=== PATIENT | female | born 1990 | race Two or more races ===

== ENCOUNTER 2023-07-09 15:28 | Emergency (ER) | payer MEDICAID ==
[~2023-07-09] VITALS: Ht 160 cm; Wt 114.7 kg
[2023-07-09 18:59] VITALS: BP 114/58; PULSE 90; RESP 18; TEMP 98.6; O2SAT 97
== END 2023-07-09 19:00 | disposition left against medical advice (07) ==
LOC: ER 15:28
DX: R05.9 Cough, unspecified (principal); J02.9 Acute pharyngitis, unspecified; M79.10 Myalgia, unspecified site; Z53.21 Procedure and treatment not carried out due to patient leaving prior to being seen by health care provider

== ENCOUNTER 2024-08-22 15:38 | Emergency (ER) | payer MEDICAID ==
[~2024-08-22] VITALS: Ht 160 cm; Wt 101.5 kg
[2024-08-22 16:46] VITALS: BP 100/56; PULSE 64; RESP 16; O2SAT 98
== END 2024-08-22 16:51 | disposition left against medical advice (07) ==
LOC: ER 15:38
DX: S00.12XA Contusion of left eyelid and periocular area, initial encounter (principal); H57.12 Ocular pain, left eye; Z53.21 Procedure and treatment not carried out due to patient leaving prior to being seen by health care provider; X58.XXXA Exposure to other specified factors, initial encounter; Y93.89 Activity, other specified; Y92.89 Other specified places as the place of occurrence of the external cause; Y99.8 Other external cause status

== ENCOUNTER 2024-08-22 20:14 | Emergency (ER) | payer MEDICAID ==
[~2024-08-22] VITALS: Ht 160 cm; Wt 101.6 kg
[2024-08-22] MEDS ORDERED: KETOROLAC TROMETH 30 MG/ML 1ML VIAL IV ONE (21:15)
[2024-08-22] MEDS: KETOROLAC TROMETH 30 MG/ML 1ML VIAL IM ONE (22:51)
[2024-08-22 22:55] VITALS: BP 100/69; PULSE 60; RESP 17; TEMP 98.2; O2SAT 99
== END 2024-08-22 23:03 | disposition home or self-care (01) ==
LOC: ER 20:15
DX: S00.12XA Contusion of left eyelid and periocular area, initial encounter (principal); W22.8XXA Striking against or struck by other objects, initial encounter; Y93.89 Activity, other specified; Y92.89 Other specified places as the place of occurrence of the external cause; Y99.8 Other external cause status
CPT/HCPCS: 96372; 99283; J1885

== ENCOUNTER 2024-09-26 18:31 | Emergency (ER) | payer MEDICAID ==
[~2024-09-26] VITALS: Ht 160 cm; Wt 105.5 kg
--- NOTE | 2024-09-26 18:50 | ED.PDOC ---
SOB-HPI HPI Comments 34 y.o female presents to the ED for a chief complaint of a productive cough associated with a runny nose and body aches that started 1.5 weeks ago. Patient reports daughter got sick throughout the week and shortly after contracted the same symptoms. Patient denies any chest pain, SOB, nausea, vomiting, diarrhea, fever, chills. Patient denies any medical, surgical history or allergies. 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 Family History Family History: Reviewed,noncontributory to illness Social History Smoker: Non-Smoker Alcohol: Denies ETOH Use Drugs: Denies Drug Use Lives In: Home Constitutional: denies: chills, diaphoresis, fatigue, fever, malaise, sweats, weakness, others EENTM: reports: nasal discharge; denies: blurred vision, double vision, ear bleeding, ear discharge, ear drainage, ear pain, ear ringing, eye pain, eye redness, hearing loss, mouth pain, mouth swelling, nose bleeding, nose congestion, nose pain, photophobia, tearing, throat pain, throat swelling, voice changes, others Respiratory: reports: cough; denies: hemoptysis, orthopnea, SOB at rest, shortness of breath, SOB with excertion, stridor, wheezing, others Cardiovascular: denies: chest pain, dizzy spells, diaphoresis, Dyspnea on exertion, edema, irregular heart beat, left arm pain, lightheadedness, palpitations, PND, syncope, others Gastrointestinal: denies: abdomen distended, abdominal pain, blood streaked bowels, constipated, diarrhea, dysphagia, difficulty swallowing, hematemesis, melena, nausea, poor appetite, poor fluid intake, rectal bleeding, rectal pain, vomiting, others Genitourinary: denies: abnormal vagina bleeding, burning, dyspareunia, dysuria, flank pain, frequency, hematuria, incontinence, pain, , vagina discharge, urgency, others Neurological: denies: dizziness, fainting, headache, left sided numbness, left sided weakness, numbness, paresthesia, pre-existing deficit, right sided numbness, right sided weakness, seizure, speech problems, tingling, tremors, weakness, others Musculoskeletal: reports: muscle pain; denies: back pain, gout, joint pain, joint swelling, muscle stiffness, neck pain, others Integumetry: denies: bruises, change in color, change in hair/nails, dryness, laceration, lesions, lumps, rash, wounds, others Allergic/Immunocompromised: denies: Difficulty Healing, Frequent Infections, Hives, Itching, others Hematologic/Lymphatic: denies: anemia, blood clots, easy bleeding, easy bruising, swollen glands, others Endocrine: denies: excessive hunger, excessive sweating, excessive thirst, excessive urination, flushing, intolerance to cold, intolerance to heat, unexplained weight gain, unexplained weight loss, others Psychiatric: denies: anxiety, bipolar disorder, depression, hopeless, panic disorder, schizophrenia, sleepless, suicidal, others All Other Systems: Reviewed and Negative Physical Exam General Appearance: No Apparent Distress, Normal HEENT: Other (post nasal drip ) Neck: Full Range of Motion, Non-Tender, Normal, Normal Inspection Respiratory: Chest Non-Tender, Lungs Clear, No Accessory Muscle Use, No Respiratory Distress, Normal Breath Sounds Cardiovascular: No Edema, No JVD, No Murmur, No Gallop, Normal Peripheral Pulses, Regular Rate/Rhythm Breast Exam: Deferred Gastrointestinal: No Organomegaly, Non Tender, No Pulsatile Mass, Normal Bowel Sounds, Soft Genitalia: Deferred Pelvic: Deferred Rectal: Deferred Extremities: No calf tenderness, Normal capillary refill, Normal inspection, Normal range of motion, Non-tender, No pedal edema Musculoskeletal : Apperance: Normal Neurologic: Alert, bureau chief II-XII nml as Tested, No Motor Deficits, Normal Affect, Normal Mood, No Sensory Deficits Cerebellar Function: Normal Reflexes: Normal Skin: Dry, Normal Color, Warm Lymphatic: No Adenopathy Was a procedure done? Was a procedure done?: No Differential Dx Differential Diagnosis: Bronchitis, Pneumonia, Sinusitis, Allergic Rhinitis, Otitis Media, Pharyngitis, URI X-Ray, Labs, Meds, VS Vital Signs Date Time Temp Pulse Resp B/P (MAP) Pulse Ox O2 Delivery O2 Flow Rate FiO2 09/26/24 18:38 98.1 82 18 118/58 (78) 97 09/26/24 18:38 18 97 Room Air* 0 21 Time of 1ST Reevaluation: 18:47 Reevaluation 1ST: Unchanged Patient Education/Counseling: Diagnosis, Treatment, Prognosis Family Education/Counseling: No Family Present Additional Information Discuss tx/ results: Patient and medical personnel Departure 1 Departure Time of Disposition: 18:51 Impression: Primary Impression: Viral URI with cough Disposition: 01 HOME / SELF CARE / HOMELESS Condition: Good e-Prescriptions Benzonatate (Benzonatate) 200 Mg Cap 1 CAP PO TID PRN for 5 Days, #30 CAP Prov: JB ENNIS MD 09/26/24 Loratadine & Pseudoephedrine (Claritin-D 24 Hour 10-240 mg) 1 Tab Tab 1 TAB PO q24 for 7 Days, #7 TAB 0 Refills Prov: JB ENNIS MD 09/26/24 Discharged With: Self Critical Care Note Critical Care Time?: No Stability Stability form required: No I personally scribed for JB ENNIS MD ([email or web address]) on 09/26/24 at 18:50. Electronically submitted by Cheryl Thurman ([facility]). JB ENNIS MD Sep 26, 2024 18:50
[2024-09-26] MEDS ORDERED: LORA-1130 PO (18:53)
[2024-09-26] MEDS ORDERED: BENZ200C64 PO (18:53)
[2024-09-26 19:14] VITALS: BP 90/67; PULSE 66; RESP 17; TEMP 98.7; O2SAT 97
== END 2024-09-26 19:17 | disposition home or self-care (01) ==
LOC: ER 18:31
DX: J06.9 Acute upper respiratory infection, unspecified (principal); B97.89 Other viral agents as the cause of diseases classified elsewhere

== ENCOUNTER 2025-07-23 08:22 | Emergency (ER) | payer MEDICAID ==
[~2025-07-23] VITALS: Ht 160 cm; Wt 111.2 kg
[~2025-07-23 08:22] MED LIST: BENZ200C64 PO; LORA-1130 PO
--- NOTE | 2025-07-23 08:38 | ED.PDOC ---
History of Present Illness HPI Comments A 35 YEAR OLD FEMALE PRESENTS TO THE ED WITH COMPLAINT OF LEFT BREAST PAIN. PATIENT STATES SHE HAS BEEN EXPERIENCING LEFT BREAST PAIN WITH A SMALL LUMP FOR THE PAST 3 DAYS WITH WORSENING PAIN TODAY. PATIENT REPORTS SHE HAS ALSO BEEN EXPERIENCING EPIGASTRIC PAIN THAT IS WORSE WHEN EATING OFF AND ON FOR THE PAST 1 MONTH. PATIENT DENIES DYSURIA, HEMATURIA, FLANK PAIN, FEVER, CHILLS, SHORTNESS OF BREATH, CHEST PAIN, NAUSEA, VOMITING, HEADACHE, OR OTHER COMPLAINTS. NO OTHER SYMPTOMS OR MODIFYING FACTORS AT THIS TIME. PATIENT IS ALERT, ORIENTED X 4, AND HAS STEADY GAIT. Chief Complaint: Breast pain Time Seen by MD: 08:26 Primary Care Provider: TONY Reviewed Notes: Nurses Notes, Medications, Allergies Allergies: Coded Allergies: No Known Drug Allergy (Verified Allergy, Unknown, 07/09/23) Home Meds Active Scripts Benzonatate (Benzonatate) 200 Mg Cap, 1 CAP PO TID PRN for 5 Days, #30 CAP Prov:JB ENNIS MD 09/26/24 Loratadine & Pseudoephedrine (Claritin-D 24 Hour 10-240 mg) 1 Tab Tab, 1 TAB PO q24 for 7 Days, #7 TAB 0 Refills Prov:JB ENNIS MD 09/26/24 Information Source: Patient Mode of Arrival: Ambulatory Severity: Moderate Timing: Days, Weeks Duration: Since onset, Days Prehospital treatment: None Medication Refill: For: Other (LEFT BREAST PAIN AND EPIGASTRIC PAIN) Past Medical History PAST MEDICAL HISTORY: Denies Surgical History: Denies all surgeries 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 Family History Family History: Reviewed,noncontributory to illness Social History Smoker: Non-Smoker Alcohol: Denies ETOH Use Drugs: Denies Drug Use Lives In: Home Constitutional: denies: chills, diaphoresis, fatigue, fever, malaise, sweats, weakness, others EENTM: denies: blurred vision, double vision, ear bleeding, ear discharge, ear drainage, ear pain, ear ringing, eye pain, eye redness, hearing loss, mouth pain, mouth swelling, nasal discharge, nose bleeding, nose congestion, nose pain, photophobia, tearing, throat pain, throat swelling, voice changes, others Respiratory: denies: cough, hemoptysis, orthopnea, SOB at rest, shortness of breath, SOB with excertion, stridor, wheezing, others Cardiovascular: denies: chest pain, dizzy spells, diaphoresis, Dyspnea on exertion, edema, irregular heart beat, left arm pain, lightheadedness, palpitations, PND, syncope, others Gastrointestinal: reports: abdominal pain; denies: abdomen distended, blood streaked bowels, constipated, diarrhea, dysphagia, difficulty swallowing, hematemesis, melena, nausea, poor appetite, poor fluid intake, rectal bleeding, rectal pain, vomiting, others Genitourinary: reports: pain (LEFT BREAST PAIN); denies: abnormal vagina bleeding, burning, dyspareunia, dysuria, flank pain, frequency, hematuria, incontinence, , vagina discharge, urgency, others Neurological: denies: dizziness, fainting, headache, left sided numbness, left sided weakness, numbness, paresthesia, pre-existing deficit, right sided numbnes s, right sided weakness, seizure, speech problems, tingling, tremors, weakness, others Musculoskeletal: denies: back pain, gout, joint pain, joint swelling, muscle pain, muscle stiffness, neck pain, others Integumetry: denies: bruises, change in color, change in hair/nails, dryness, laceration, lesions, lumps, rash, wounds, others Allergic/Immunocompromised: denies: Difficulty Healing, Frequent Infections, Hives, Itching, others Hematologic/Lymphatic: denies: anemia, blood clots, easy bleeding, easy bruising, swollen glands, others Endocrine: denies: excessive hunger, excessive sweating, excessive thirst, excessive urination, flushing, intolerance to cold, intolerance to heat, unexplained weight gain, unexplained weight loss, others Psychiatric: denies: anxiety, bipolar disorder, depression, hopeless, panic disorder, schizophrenia, sleepless, suicidal, others All Other Systems: Reviewed and Negative Physical Exam General Appearance: Obese HEENT: Normal ENT Inspection, PERRL/EOMI, Pharynx Normal, TMs Normal Neck: Full Range of Motion, Non-Tender, Normal, Normal Inspection Respiratory: Chest Non-Tender, Lungs Clear, No Accessory Muscle Use, No Respiratory Distress, Normal Breath Sounds Cardiovascular: No Edema, No JVD, No Murmur, No Gallop, Normal Peripheral Pulses, Regular Rate/Rhythm Breast Exam: (L) Tenderness (WITH A LUMP ON LEFT MIDDLE UPPER BREAST, NO REDNESS AND SWELLING, DENSE BREAST TISSUE?? ), Other (NORMAL RIGHT BREAST EXAM. ) Gastrointestinal: Epigastric, No Organomegaly, No Pulsatile Mass, Normal Bowel Sounds, Soft, Tenderness (EPIGASTRIC, NO GUARDING AND REBOUND TENDERNESS. ) Genitalia: Deferred Pelvic: Deferred Rectal: Deferred Extremities: No calf tenderness, Normal capillary refill, Normal inspection, Normal range of motion, Non-tender, No pedal edema Musculoskeletal : Apperance: Normal Neurologic: Alert, greens picker II-XII nml as Tested, No Motor Deficits, Normal Affect, Normal Mood, No Sensory Deficits Cerebellar Function: Normal Reflexes: Normal Skin: Dry, Normal Color, Warm Peripheral Pulses: 2+ carotid (R), 2+ carotid (L) Lymphatic: No Adenopathy Was a procedure done? Was a procedure done?: No Differential Dx Considerations may include: BREAST PAIN, BREAST CYST, BREAST MASS, SOFT TISSUE INFECTION, GERD, GASTRITIS CHOLELITHIASIS, BILIARY SLUDGE, PANCREATITIS, UTI, ACUTE CYSTITIS X-Ray, Labs, Meds, VS Vital Signs Date Time Temp Pulse Resp B/P (MAP) Pulse Ox O2 Delivery O2 Flow Rate FiO2 07/23/25 08:26 98.3 68 18 122/80 97 98.3 Lab Test 07/23/25 08:48 07/23/25 08:36 Range/Units White Blood Count 10.3 4.4-10.8 10^3/uL Red Blood Count 4.88 4.0-5.20 10^6/uL Hemoglobin 14.5 12.2-16.2 g/dL Hematocrit 43.1 36.0-46.0 % Mean Corpuscular Volume 88.3 80.0-100.0 fL Mean Corpuscular Hemoglobin 29.7 28.0-32.0 pg Mean Corpuscular Hemoglobin Concent 33.6 32.0-36.0 g/dL Red Cell Distribution Width 13.6 11.8-14.3 % Platelet Count 248 140-450 10^3/uL Mean Platelet Volume 9.8 6.9-10.8 fL Neutrophils (%) (Auto) 71.2 37.0-80.0 % Lymphocytes (%) (Auto) 20.7 10.0-50.0 % Monocytes (%) (Auto) 6.5 0.0-12.0 % Eosinophils (%) (Auto) 1.0 0.0-7.0 % Basophils (%) (Auto) 0.6 0.0-2.0 % Neutrophils # (Auto) 7.3 1.6-8.6 10 ^3/uL Lymphocytes # (Auto) 2.1 0.4-5.4 10 ^3/uL Monocytes # (Auto) 0.7 0-1.3 10 ^3/uL Eosinophils # (Auto) 0.1 0-0.8 10 ^3/uL Basophils # (Auto) 0.1 0-0.2 10 ^3/uL Nucleated Red Blood Cells 0.3 % Sodium Level 136 136-145 mmol/L Potassium Level 4.2 3.5-5.1 mmol/L Chloride Level 109 H 98-107 mmol/L Carbon Dioxide Level 21 20-31 mmol/L Anion Gap 6 5-15 Blood Urea Nitrogen 8 L 9-23 mg/dL Creatinine 0.66 0.550-1.02 mg/dL Glomerular Filtration Rate Calc 119 >90 mL/min BUN/Creatinine Ratio 12.1 10.0-20.0 Serum Glucose 112 H 74-106 mg/dL Calcium Level 8.9 8.7-10.4 mg/dL Total Bilirubin 0.7 0.2-1.0 mg/dL Aspartate Amino Transferase (AST) 42 H 13-40 U/L Alanine Aminotransferase (ALT) 47 H 7-40 U/L Alkaline Phosphatase 54 46-116 U/L Total Protein 7.9 5.7-8.2 g/dL Albumin 4.5 3.2-4.8 g/dL Lipase 36 12-53 U/L Urine Color Light-yellow Yellow Urine Clarity Clear Clear Urine pH 5.5 5.0-9.0 Urine Specific [place] 1.025 1.001-1.035 Urine Protein Negative Negative Urine Ketones Negative Negative Urine Blood Trace H Negative /uL Urine Nitrite Negative Negative Urine Bilirubin Negative Negative Urine Urobilinogen Normal Negative mg/dL Urine Leukocyte Esterase Negative Negative /uL Urine RBC 2 0 - 4 /hpf Urine Microscopic WBC < 1 0-5 /HPF Urine Squamous Epithelial Cells Few <5 /hpf Urine Bacteria None seen None Seen /hpf Urine Glucose Normal Normal mg/dL Urine Test Negative Negative INDICATION: EPIGASTRIC PAIN X ONE MONTH TECHNIQUE: Multiple real-time sonographic images were obtained of the right upper quadrant. COMPARISON: None FINDINGS: The liver demonstrates heterogeneous echotexture without focal mass lesions. The liver measures 20 cm. There is no intrahepatic or extrahepatic ductal dilatation. The common duct measures 0.5 mm. The gallbladder is without evidence of stone or sludge. The gallbladder wall measures 0.2mm and is within normal limits. The right kidney measures 12 cm. The right kidney is normal in contour, size, and shape. The echogenicity is normal. There is no hydronephrosis. The pancreas is not well visualized due to overlying bowel gas. IMPRESSION: No sonographic evidence of gallstones or acute cholecystiti Hepatic steatosis/hepatomegaly ATED BY: JACOBO FIELDS MD DICTATED DATE/TIME: 07/23/25931 SIGNED BY: JACOBO FIELDS MD SIGNED DATE/TIME: 07/23/25931 CC: US OF THE left BREAST INDICATION: LUMP AND PAIN ON LEFT UPPER BREAST X 3 DAYS TECHNIQUE: Targeted left breast ultrasound was performed. COMPARISON: Prior exam dated: None FINDINGS: No solid or suspicious masses. No areas of architectural distortion. No malignant adenopathy. No dominant cysts are present. IMPRESSION: There is no sonographic evidence for malignancy. Further evaluation with diagnostic bilateral mammogram is recommended. ACR Bi Rads Category:Category 0-"INCOMPLETE" (Needs Additional Imaging Evaluation)) ATED BY: ANIL PARRISH MD DICTATED DATE/TIME: 07/23/25931 SIGNED BY: ANIL PARRISH MD SIGNED DATE/TIME: 07/23/25931 CC: X-Ray, Labs, Meds, VS Comment EXTERNAL MEDICAL RECORDS REVIEWED: [NONE] INDEPENDENT HISTORIANS: [NONE] SOCIAL DETERMINANTS OF HEALTH: [NONE] LABS ORDERED: CBC, CMP, LIPASE, UA, URINE REVIEWED AND INTERPRETED RESULTS: AST 42, ALT 47 IMAGING ORDERED: US ABDOMEN, US BREAST LT TREATMENTS ORDERED: PT DECLINED. PROCEDURES PERFORMED: NONE CRITICAL CARE TIME: NONE I HAVE DISCUSSED THE PATIENT WITH THE ATTENDING PHYSICIAN DR. EMDINA AND HE AGREES WITH THE PATIENT'S PLAN OF CARE AND DISPOSITION. BASED ON HISTORY OF PRESENT ILLNESS, AND PHYSICAL EXAM, PATIENT WILL BE DISCHARGED HOME. DISCUSSED PLAN FOR DISCHARGE HOME WITH RX [IBUPROFEN 800MG AND PRILOSEC]. MEDICATION WARNINGS GIVEN. SHARED DECISION MAKING: DISCUSSED WITH PATIENT THAT THEIR WORKUP WAS NORMAL. PATIENT INSTRUCTED TO FOLLOW UP WITH PRIMARY CARE PROVIDER IN 1-2 DAYS FOR RE- EVALUATION OF SYMPTOMS. PATIENT VERBALIZES UNDERSTANDING TO RETURN TO ED FOR NEW OR WORSENING SYMPTOMS OR IF FOLLOW UP WITH PCP CANNOT BE OBTAINED. PATIENT FEELS COMFORTABLE GOING HOME AT THIS TIME. ALL QUESTIONS ADDRESSED AT TIME OF DISCHARGE. Images Reviewed?: Images reviewed and evaluated by me Time of 1ST Reevaluation: 10:36 Reevaluation 1ST: Improved Patient Education/Counseling: Diagnosis, Treatment, Need For Follow Up Family Education/Counseling: Diagnosis, Treatment, Need For Follow Up Medical Screening: No EMC Exist At This Time SEPSIS Sepsis Screen Date sepsis recognized/suspect: Jul 23, 2025 Time Sepsis recognized/suspect: 828 Recent Procedure: No On Antibiotic Therapy: No Respiratory Rate >20: No Heart Rate >90: No Temp<36 C (96.8 F) or >38.3 C: No SBP <90 or MAP <65 mmHG: No New Acute Mental Status Change: No Is the patient on CPAP, BIPAP,: No Physician Orders Comprehensive Metabolic Panel (07/23/25 08:36) Lipase (07/23/25 08:36) Gallbladder (07/23/25 08:36) L Breast Ultrasound (07/23/25 08:36) Vital Signs Date Time Temp Pulse Resp B/P (MAP) Pulse Ox O2 Delivery O2 Flow Rate FiO2 07/23/25 08:26 98.3 68 18 122/80 97 98.3 Laboratory Tests Test 07/23/25 08:48 White Blood Count 10.3 10^3/uL (4.4-10.8) Departure 1 Departure Time of Disposition: 10:36 Impression: Primary Impression: Hepatic steatosis Additional Impression: Pain of left breast Disposition: 01 HOME / SELF CARE / HOMELESS Condition: Stable Additional Instructions: FOLLOW-UP WITH PCP IN 1 TO 2 DAYS FOR MAMMOGRAM STUDY. TAKE MEDICATIONS PRESCRIBED. RETURN TO ED FOR ANY NEW OR WORSENING SYMPTOMS. e-Prescriptions Pantoprazole Sodium Sesquihydr (Protonix) 40 Mg Tab 40 MG PO DAILY, #20 TAB Prov: MAGED HODGE 07/23/25 Ibuprofen (Ibuprofen) 800 Mg Tab 1 TAB PO TID, #30 TAB Prov: MAGED HODGE 07/23/25 Discharged With: Self Critical Care Note Critical Care Time?: No Stability Stability form required: No I personally scribed for MAGED HODGE ([email or web address]) on 07/23/25 at 08:38. Electronically submitted by Marcio Skaggs ([email or web address]). I personally scribed for MAGED HODGE ([email or web address]) on 07/23/25 at 09:48. Electronically submitted by Marcio Skaggs ([email or web address]). MAGED HODGE Jul 23, 2025 08:38
[2025-07-23 09:07] LABS: Hematocrit 43.1 % (36.0-46.0); Hemoglobin 14.5 g/dL (12.2-16.2); Mean Corpuscular Hemoglobin 29.7 pg (28.0-32.0); Mean Corpuscular Volume 88.3 fL (80.0-100.0); Nucleated Red Blood Cells % 0.3 %
[2025-07-23 09:17] LABS: Albumin 4.5 g/dL (3.2-4.8); Alkaline Phosphatase 54 U/L (46-116); Anion Gap 6 (5-15); Calcium 8.9 mg/dL (8.7-10.4); Carbon Dioxide 21 mmol/L (20-31); Potassium 4.2 mmol/L (3.5-5.1)
[2025-07-23 09:18] LABS: BUN/Creatinine Ratio 12.1 (10.0-20.0); Total Protein 7.9 g/dL (5.7-8.2)
[2025-07-23 09:19] LABS: Bilirubin, Total 0.7 mg/dL (0.2-1.0)
[2025-07-23 09:20] LABS: Alanine Aminotransferase 47 U/L (7-40); Blood Urea Nitrogen 8 mg/dL (9-23); Chloride 109 mmol/L (98-107); Glucose 112 mg/dL (74-106); Sodium 136 mmol/L (136-145)
--- NOTE | 2025-07-23 09:35 | DVH ---
INDICATION: EPIGASTRIC PAIN X ONE MONTH TECHNIQUE: Multiple real-time sonographic images were obtained of the right upper quadrant. COMPARISON: None FINDINGS: The liver demonstrates heterogeneous echotexture without focal mass lesions. The liver lisa ures 20 cm. There is no intrahepatic or extrahepatic ductal dilatation. The common duct measures 0 .5 mm. The gallbladder is without evidence of stone or sludge. The gallbladder wall measures 0.2mm and is within normal limits. The right kidney measures 12 cm. The right kidney is normal in contour, size, and shape. The echog enicity is normal. There is no hydronephrosis. The pancreas is not well visualized due to overlying bowel gas. IMPRESSION: No sonographic evidence of gallstones or acute cholecystiti Hepatic steatosis/hepatomegaly
--- NOTE | 2025-07-23 09:35 | DVH ---
US OF THE left BREAST INDICATION: LUMP AND PAIN ON LEFT UPPER BREAST X 3 DAYS TECHNIQUE: Targeted left breast ultrasound was performed. COMPARISON: Prior exam dated: None FINDINGS: No solid or suspicious masses. No areas of architectural distortion. No malignant adenopathy. No dominant cysts are present. IMPRESSION: There is no sonographic evidence for malignancy. Further evaluation with diagnostic bilateral mammogr am is recommended. ACR Bi Rads Category:Category 0-"INCOMPLETE" (Needs Additional Imaging Evaluation))
[2025-07-23 09:44] LABS: Urine Protein, UAD Negative (Negative)
[2025-07-23 10:33] LABS: Lipase 36 U/L (12-53)
[2025-07-23] MEDS ORDERED: IBUP-1456 PO (10:37)
[2025-07-23] MEDS ORDERED: PANT40TA2 PO (10:37)
[2025-07-23 10:41] VITALS: BP 132/75; PULSE 59; RESP 16; TEMP 98.3; O2SAT 97
== END 2025-07-23 10:44 | disposition home or self-care (01) ==
LOC: ER 08:22
DX: K76.0 Fatty (change of) liver, not elsewhere classified (principal); N64.4 Mastodynia; Z79.899 Other long term (current) drug therapy
CPT/HCPCS: 36415; 76642; 76705; 80053; 81001; 81025; 83690; 85025